=== PATIENT | female | born 1960 | race Caucasian/White ===

== ENCOUNTER 2016-11-09 21:13 | Inpatient (IN) | payer OTHER ==
[~2016-11-09] VITALS: Ht 162.6 cm; Wt 85.4 kg
[2016-11-09 21:52] LABS: PLATELET COUNT 246 x10^3mcL (130-400); RED CELL DISTRIBUTION WIDTH 14.2 % (11.5-14.5)
[2016-11-09 22:03] LABS: CALCIUM 8.5 mg/dL (8.5-10.1); CHLORIDE SERUM 103 mmol/L (98-107); CREATININE SERUM 0.7 mg/dL (0.6-1.0); GFR1 > 60 mL/min; GLUCOSE SERUM 154 mg/dL (74-106); POTASSIUM SERUM 3.4 mmol/L (3.5-5.1); SODIUM SERUM 138 mmol/L (136-145)
[2016-11-09 22:07] LABS: ALBUMIN 3.6 g/dL (3.4-5.0); ALKALINE PHOSPHATASE 90 U/L (46-116); ALT/SGPT 23 U/L (14-59); AST/SGOT 15 U/L (15-37); BILIRUBIN TOTAL 0.35 mg/dL (0.20-1.00); TOTAL PROTEIN, SERUM 7.2 g/dL (6.4-8.2)
[2016-11-10 03:15] VITALS: BP 138/64
[2016-11-10 03:21] LABS: CHOLESTEROL/HDL RATIO 2.3; PHOSPHOROUS 3.3 mg/dL (2.5-4.9)
[2016-11-10 03:30] LABS: T3 TOTAL 1.24 ng/mL
[2016-11-10 03:31] LABS: FREE T4 1.42 ng/dL (0.76-1.46); FREE THYROXINE INDEX 3.6 ug/dL (1.4-4.5); T4(THYROXINE) 11.1 ug/dL (4.7-13.3)
[2016-11-10 06:25] VITALS: BP 110/58
[2016-11-10 08:45] LABS: microscopic required? YES; urine erythrocyte NEGATIVE (NEGATIVE)
[2016-11-10 09:23] LABS: AMPHETAMINE QUAL UR NONE DETECTED (NEG <=1000)
[2016-11-10 10:28] VITALS: BP 122/75
[2016-11-10 13:25] VITALS: BP 131/77
[2016-11-10 17:16] VITALS: BP 132/69
[2016-11-10 21:25] VITALS: BP 143/84
[2016-11-11 05:45] VITALS: BP 144/90
[2016-11-11 06:29] LABS: BASOPHIL % 0.5 % (0-2); PLATELET COUNT 256 x10^3mcL (130-400); RED CELL DISTRIBUTION WIDTH 14.5 % (11.5-14.5)
[2016-11-11 07:19] LABS: CALCIUM 8.9 mg/dL (8.5-10.1); CARBON DIOXIDE 25.6 mmol/L (21-32); CHLORIDE SERUM 108 mmol/L (98-107); CREATININE SERUM 0.5 mg/dL (0.6-1.0); GFR1 > 60 mL/min; GLUCOSE SERUM 91 mg/dL (74-106); POTASSIUM SERUM 3.8 mmol/L (3.5-5.1); SODIUM SERUM 142 mmol/L (136-145)
[2016-11-11 12:49] VITALS: BP 130/73
[2016-11-11 17:08] VITALS: BP 137/80
[2016-11-11 20:14] VITALS: BP 149/68
[2016-11-12 05:54] VITALS: BP 146/81
[2016-11-12 06:06] LABS: BASOPHIL % 0.6 % (0-2); PLATELET COUNT 260 x10^3mcL (130-400); RED CELL DISTRIBUTION WIDTH 13.8 % (11.5-14.5)
[2016-11-12 06:24] LABS: CALCIUM 8.8 mg/dL (8.5-10.1); CARBON DIOXIDE 29.2 mmol/L (21-32); CHLORIDE SERUM 107 mmol/L (98-107); CREATININE SERUM 0.6 mg/dL (0.6-1.0); GFR1 > 60 mL/min; GLUCOSE SERUM 89 mg/dL (74-106); POTASSIUM SERUM 3.7 mmol/L (3.5-5.1); SODIUM SERUM 142 mmol/L (136-145)
[2016-11-12] MEDS ORDERED: MECLIZINE HCL12.5 MG PO (09:17)
[2016-11-12] MEDS ORDERED: CIPRO250 MG PO (09:17)
[2016-11-12] MEDS ORDERED: LAC PO (09:17)
[2016-11-12 09:54] VITALS: BP 131/78
[2016-11-12 10:50] VITALS: BP 131/78
== END 2016-11-12 11:58 | disposition home or self-care (01) | DRG 149 ==
LOC: ED 21:13 → DU 11-10 02:25
PROVIDERS: Emergency Medicine; Family Medicine; ADMIT Family Medicine
DX: H81.10 Benign paroxysmal vertigo, unspecified ear (principal); N17.0 Acute kidney failure with tubular necrosis; N39.0 Urinary tract infection, site not specified; E87.6 Hypokalemia; R73.03 Prediabetes; M54.2 Cervicalgia; E78.5 Hyperlipidemia, unspecified; E66.9 Obesity, unspecified; Z68.32 Body mass index [BMI] 32.0-32.9, adult
CPT/HCPCS: 80307; 83880; 84439; G0480; J0696; J2060; J7030; J7040; J8597; Q0092